=== PATIENT | female | born 1965 | race Caucasian/White ===

== ENCOUNTER 2019-06-21 16:39 | Emergency (ER) | payer BC, SELFPAY ==
[2019-06-21 16:55] VITALS: BP 142/75; PULSE 73; RESP 24; TEMP 36.4; O2SAT 97
--- NOTE | 2019-06-21 17:04 | ECG_ITS ---
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
--- NOTE | 2019-06-21 17:08 | ED.GENADULT ---
HPI - General Adult General Chief complaint: Headache Stated complaint: HBP Time Seen by Provider: 06/21/19 17:08 Source: patient Mode of arrival: ambulatory Limitations: no limitations History of Present Illness HPI narrative: 54-year-old female patient presents to the [facility] with complaints of high blood pressure. Patient states that she was at work today and a friend of hers had a blood pressure cuff and they randomly took her blood pressure twice at 2 different times and states that it was elevated. Patient states that the first blood pressure was 199/96 and that the second was also elevated. Patient states that she has been having a little bit of a headache behind the left ear that she did take some ibuprofen for with improvement. Patient states that she was on blood pressure medication but has been off of it for about a year. Patient states that she had some difficulty trying to get it filled and never followed up with her doctor about getting it refilled. Patient states that she does have an appointment with her primary doctor on July 05. Patient denies any lightheadedness, dizziness, vision changes. Patient denies any chest pain or shortness of breath. Patient states that she is needing a work note and medication before she is allowed to go back to work. Patient states that she was actually sent here from work to get checked out. Related Data Home Medications Medication Instructions Recorded Confirmed No Home Medications 06/21/19 06/21/19 Allergies Allergy/AdvReac Type Severity Reaction Status Date / Time No Known Allergies Allergy Verified 06/21/19 17:16 Review of Systems Review of Systems: Narrative: CONSTITUTIONAL: Denies fever, chills, or sweats. EYES: Denies visual changes, redness, or discharge. ENT: Denies rhinorrhea, congestion, sore throat, or otalgia. CARDIOVASCULAR: Denies chest pain, palpitations, or edema. RESPIRATORY: Denies cough or dyspnea. GASTROINTESTINAL: Denies abdominal pain, nausea, vomiting, or diarrhea. GENITOURINARY: Denies dysuria or hematuria. SKIN: Denies rash or itching. MUSCULOSKELETAL: Denies back pain, joint pain, or myalgia. NEUROLOGIC: Positive headache, denies numbness, or weakness. PSYCHIATRIC: Denies anxiety or depression. PMFSH Comments At the time of my signature I agree with nursing past medical history, surgical, social, and family history. There is no relevant family history pertinent to the presenting complaint. Exam Narrative: Exam Narrative: GENERAL: Well-appearing, well-nourished, and in no acute distress. HEAD: Normocephalic, atraumatic. No tenderness noted to frontal maxillary sinuses on palpation. EYES: PERRLA and EOMI. ENT: Nares with erythema and edema noted bilaterally, no rhinorrhea or epistaxis. Mucous membranes moist. Posterior pharynx with no erythema, tonsil enlargement, exudates or lesions present. Bilateral TMs are clear with no erythema or foreign bodies in the canal. NECK: Supple. No lymphadenopathy CHEST: Clear to auscultation. No respiratory distress. HEART: Regular rate and rhythm. No murmur heard. Normal peripheral pulses. ABDOMEN: Soft, nontender, nondistended, normal active bowel sounds. EXTREMITIES: Normal range of motion. No edema. SKIN: Warm, dry, no rash. NEURO: No focal deficits. Alert and oriented x3. Course Vital Signs Vital signs: Vital Signs Temperature 36.4 C 06/21/19 16:55 Pulse Rate 73 06/21/19 16:55 Respiratory Rate 24 H 06/21/19 16:55 Blood Pressure 142/75 H 06/21/19 16:55 Pulse Oximetry 97 06/21/19 16:55 Temperature 36.4 C 06/21/19 16:55 Pulse Rate 73 06/21/19 16:55 Respiratory Rate 24 H 06/21/19 16:55 Blood Pressure 142/75 H 06/21/19 16:55 Pulse Oximetry 97 06/21/19 16:55 Vital signs reviewed. Medical Decision Making Differential Diagnosis Differential Diagnosis: Differential diagnosis: Migraine, cluster headache, tension headache, sinusitis, dental infection, TMJ problems,
== END 2019-06-21 17:36 | disposition home or self-care (01) ==
PROVIDERS: Emergency Provider Nurse Practitioner Family
DX: R51 Headache (principal); I10 Essential (primary) hypertension; E78.00 Pure hypercholesterolemia, unspecified; E11.9 Type 2 diabetes mellitus without complications
CPT/HCPCS: 93005; 99213; G0463

== ENCOUNTER 2022-11-28 17:17 | Emergency (ER) | payer OTHER, SELFPAY ==
[2022-11-28 17:24] VITALS: BP 126/53; PULSE 84; RESP 20; TEMP 36.4; O2SAT 95
--- NOTE | 2022-11-28 17:32 | ED.EAR ---
HPI - Ear Problem General Chief complaint: Ear Stated complaint: left ear pain History of Present Illness HPI Narrative: PATIENT PRESENTS WITH LEFT EAR PAIN AND SINUS PRESSURE. PATIENT DENIES ANY HEARING LOSS NO DRAINAGE FROM HER EAR NO FEVER NO COUGH NO SHORTNESS BREATH NO CHEST PAIN. PATIENT DENIES TAKING ANYTHING FOR HER SYMPTOMS AT THIS TIME. Related Data Home Medications Medication Instructions Recorded Confirmed bupropion HCl 150 mg 24 hr tablet, mg PO 11/28/22 extended release canagliflozin 100 mg tablet mg 11/28/22 (Invokana) losartan 100 tablet 11/28/22 mg-hydrochlorothiazide 12.5 mg tablet metformin 500 mg tablet mg 11/28/22 rosuvastatin 20 mg tablet mg 11/28/22 Allergies Allergy/AdvReac Type Severity Reaction Status Date / Time No Known Allergies Allergy Verified 06/21/19 17:16 Review of Systems Review of Systems: CONSTITUTIONAL: DENIES CHILLS, OR SWEATS. REPORTS FEVER AND GENERALIZED BODY ACHES EYES: DENIES VISUAL CHANGES, REDNESS, OR DISCHARGE. ENT: DENIES OTALGIA. REPORTS NASAL CONGESTION RUNNY NOSE AND SORE THROAT CARDIOVASCULAR: DENIES CHEST PAIN, PALPITATIONS, OR EDEMA. RESPIRATORY: DENIES DYSPNEA. REPORTS OCCASIONAL COUGH GASTROINTESTINAL: DENIES ABDOMINAL PAIN, NAUSEA, VOMITING, OR DIARRHEA. GENITOURINARY: DENIES DYSURIA OR HEMATURIA. SKIN: DENIES RASH OR ITCHING. MUSCULOSKELETAL: DENIES BACK PAIN, JOINT PAIN, OR MYALGIA. REPORTS GENERALIZED BODY ACHES NEUROLOGIC: DENIES HEADACHE, NUMBNESS, OR WEAKNESS. PSYCHIATRIC: DENIES ANXIETY OR DEPRESSION. PMFSH Comments AT TIME OF SIGNATURE, AGREE WITH NURSING PAST MEDICAL, SURGICAL, SOCIAL AND FAMILY HISTORY. THERE IS NO RELEVANT FAMILY HISTORY PERTINENT TO THE PRESENTING COMPLAINT Exam Narrative: THE PATIENT IS A WELL-DEVELOPED, WELL-NOURISHED IN NO ACUTE DISTRESS. SKIN: SKIN IS WARM AND DRY WITHOUT ERYTHEMA, SWELLING OR EXUDATE. THERE IS GOOD TURGOR. NO TENTING. HEAD: ATRAUMATIC. NORMOCEPHALIC. NO TEMPORAL OR SCALP TENDERNESS. EYES: MOIST AND BRIGHT. SCLERA AND CONJUNCTIVAE NORMAL. NO DISCHARGE. PERRLA. EXTRAOCULAR MOTIONS INTACT. GROSS VISUAL ACUITY INTACT. EARS: PINNA IS NORMAL SHAPE AND CONTOUR. CLEAR EXTERNAL AUDITORY CANALS. RIGHT tM PEARLY MARTINEZ WITH GOOD CONE OF LIGHT, NO ERYTHEMA OR SUPPURATION. BILATERAL CERUMEN NOTED NO GROSS HEARING DEFICIT. LEFT TM BULGING WITH MODERATE ERYTHEMA AT CANAL MILD MAXILLARY SINUS PRESSURE AND TENDERNESS NOSE: PINK, MOIST MUCOSA WITH GOOD AIR MOVEMENT. CLEAR RHINORRHEA WITHOUT NASAL FLARING. SEPTUM MIDLINE. MOUTH: MOIST MUCOUS MEMBRANES. THROAT; MILD ERYTHEMA NOTED TO POSTERIOR OROPHARYNX WITH MODERATE POSTNASAL DRAINAGE. WITHOUT EXUDATE OR ULCERATION.. UVULA MIDLINE. NORMAL MOVEMENT OF SOFT PALATE. NECK: SUPPLE AND NONTENDER WITH FULL RANGE OF MOTION WITHOUT DISCOMFORT. NO MENINGEAL SIGNS. LUNGS: EQUAL AND BILATERAL BREATH SOUNDS WITHOUT WHEEZES, RALES OR RHONCHI. CHEST: THE CHEST WALL IS WITHOUT RETRACTIONS OR USE OF ACCESSORY MUSCLES. HEART: HAS A REGULAR RATE AND RHYTHM WITHOUT MURMUR, GALLOPS, CLICK OR RUB. ABDOMEN: SOFT, NONTENDER WITH POSITIVE ACTIVE BOWEL SOUNDS. NO REBOUND TENDERNESS. EXTREMITIES: WITHOUT CYANOSIS, CLUBBING OR EDEMA. EQUAL 2+ DISTAL PULSES AND 2 SECOND CAPILLARY REFILL NOTED. NEUROLOGIC: ALERT, ACTIVE, . THE PATIENT MOVES ALL EXTREMITIES WITH NORMAL MUSCLE STRENGTH. NORMAL MUSCLE TONE IS NOTED. NORMAL COORDINATION IS NOTED. NO FOCAL NEUROLOGICAL FINDINGS NOTED. Course Course Level of Care: Express Care Visit Vital Signs Vital signs: Vital Signs Temperature 36.4 C 11/28/22 17:24 Pulse Rate 84 11/28/22 17:24 Respiratory Rate 20 11/28/22 17:24 Blood Pressure 126/53 L 11/28/22 17:24 Pulse Oximetry 95 11/28/22 17:24 Oxygen Delivery Room Air 11/28/22 17:24 Temperature 36.4 C 11/28/22 17:24 Pulse Rate 84 11/28/22 17:24 Respiratory Rate 20 11/28/22 17:24 Blood Pressure 126/53 L 11/28/22 17:24 Pulse Oximetry 95 11/28/22
== END 2022-11-28 17:42 | disposition home or self-care (01) ==
PROVIDERS: Emergency Provider Nurse Practitioner Family; PCP Internal Medicine
DX: H66.92 Otitis media, unspecified, left ear (principal); J32.9 Chronic sinusitis, unspecified; I10 Essential (primary) hypertension; E11.9 Type 2 diabetes mellitus without complications
CPT/HCPCS: 99213; G0463

== ENCOUNTER 2023-11-16 13:31 | Emergency (ER) | payer OTHER, SELFPAY ==
[2023-11-16 13:39] VITALS: BP 122/53; PULSE 85; RESP 20; TEMP 37.1; O2SAT 95
--- NOTE | 2023-11-16 13:54 | ED.EAR ---
HPI - Ear Problem General Chief complaint: Ear Stated complaint: right ear/head Time Seen by Provider: 11/16/23 13:44 Source: patient and RN notes reviewed Mode of arrival: ambulatory Limitations: no limitations History of Present Illness HPI Narrative: Patient presents today complaining of right ear pain and right sided headache since yesterday. No decreased hearing or drainage noted. No additional symptoms. Currently rates her pain 05/11 and has been taking Tylenol without relief. Related Data Home Medications Medication Instructions Recorded Confirmed bupropion HCl 150 mg 24 hr tablet, 150 mg PO DAILY 11/28/22 11/16/23 extended release canagliflozin 100 mg tablet 100 mg PO DAILY 11/28/22 11/16/23 (Invokana) losartan 100 1 tablet PO DAILY 11/28/22 11/16/23 mg-hydrochlorothiazide 12.5 mg tablet metformin 500 mg tablet 500 mg PO DAILY 11/28/22 11/16/23 rosuvastatin 20 mg tablet 20 mg PO DAILY 11/28/22 11/16/23 Allergies Allergy/AdvReac Type Severity Reaction Status Date / Time No Known Allergies Allergy Verified 11/16/23 13:51 Review of Systems Review of Systems: CONSTITUTIONAL: Denies body aches, fever, chills, or sweats. EYES: Denies visual changes, redness, or discharge. ENT: Denies rhinorrhea, congestion, sore throat. + right ear pain CARDIOVASCULAR: Denies chest pain, palpitations, or edema. RESPIRATORY: Denies cough or dyspnea. GASTROINTESTINAL: Denies abdominal pain, nausea, vomiting, or diarrhea. GENITOURINARY: Denies dysuria or hematuria. SKIN: Denies rash, itching, or wounds. MUSCULOSKELETAL: Denies back pain, joint pain, or myalgia. NEUROLOGIC: Denies numbness, tingling, or weakness.+ headache PSYCH: Denies depression or anxiety. [facility] Past Medical History Medical History (Updated 11/16/23 @ 13:59 by Bebe Azevedo, CROOK OPERATOR, ) Diabetes Comments At time of signature, I have reviewed and agree with nursing past medical, surgical, social and family history unless otherwise noted. Please see nursing chart for further information. There is no relevant family history pertinent to the presenting complaint Exam Narrative: GENERAL: Well-appearing, well-nourished, and in no acute distress. HEAD: Normocephalic, atraumatic. EYES: EOMI. No redness or drainage. Conjunctivae normal. ENT: Mucous membranes pink and moist. Nares clear. No rhinorrhea. TMs normal bilaterally. Throat normal. Uvula midline. NECK: Normal AROM. CHEST: No respiratory distress. EXTREMITIES: Normal range of motion. No edema. SKIN: Warm, dry, no rash. Capillary refill normal. Normal skin turgor. NEURO: No focal deficits. Alert and oriented x3. Gait steady. PSYCH: Normal affect. No signs of depression or anxiety. Course Course Level of Care: Express Care Visit Vital Signs Vital signs: Vital Signs Temperature 98.7 F 11/16/23 13:39 Pulse Rate 85 11/16/23 13:39 Respiratory Rate 11/16/23 13:39 Blood Pressure 122/53 L 11/16/23 13:39 Pulse Oximetry 95 11/16/23 13:39 Oxygen Delivery Room Air 11/16/23 13:39 Temperature 98.7 F 11/16/23 13:39 Pulse Rate 85 11/16/23 13:39 Respiratory Rate 11/16/23 13:39 Blood Pressure 122/53 L 11/16/23 13:39 Pulse Oximetry 95 11/16/23 13:39 Oxygen Delivery Room Air 11/16/23 13:39 Reviewed Medical Decision Making MDM Narrative Medical decision making narrative: Patient's exam is normal. Recommend Flonase and ibuprofen to help with your pain. Anticipatory guidance given. Differential Diagnosis Differential Diagnosis: Otitis media, otitis externa, ruptured TM, serous otitis, eustachian tube dysfunction, cerumen impaction, URI, cluster headache, tension headache, migraine Vital Signs Vital Signs: Vital Signs Temperature 98.7 F 11/16/23 13:39 Pulse Rate 85 11/16/23 13:39 Respiratory Rate 11/16/23 13:39 Blood Pressure 122/53 L 11/16/23 13:39 Pulse Oximetry 95 11/16/23 13:39 Oxygen Delivery
== END 2023-11-16 14:06 | disposition home or self-care (01) ==
PROVIDERS: Emergency Provider Nurse Practitioner; PCP Internal Medicine
DX: H92.01 Otalgia, right ear (principal); R51.9 Headache, unspecified; E11.9 Type 2 diabetes mellitus without complications; Z79.84 Long term (current) use of oral hypoglycemic drugs
CPT/HCPCS: 99211; G0463